=== PATIENT | female | born 1950 | race African-American/Black ===

== ENCOUNTER 2021-01-30 05:53 | Emergency (ER) | payer OTHER ==
[~2021-01-30] VITALS: Ht 162.6 cm; Wt 117.9 kg
[2021-01-30 05:57] VITALS: BP 135/83
[2021-01-30] MEDS ORDERED: TRAMADOL 50 MG50 MG PO (07:19)
== END 2021-01-30 07:48 | disposition home or self-care (01) ==
LOC: ER 05:53
DX: M25.532 Pain in left wrist (principal); X58.XXXA Exposure to other specified factors, initial encounter; Y93.89 Activity, other specified; Y92.89 Other specified places as the place of occurrence of the external cause; Y99.8 Other external cause status